=== PATIENT | female | born 1935 | race Caucasian/White ===

== ENCOUNTER 2019-06-22 10:15 | Outpatient (CLI) | payer OTHER, SELFPAY ==
--- NOTE | ~2019-06-22 | MM_ITS ---
EXAMINATION: MM screening cheryl BI w von HISTORY: Screening mammogram TECHNIQUE: Craniocaudal and mediolateral oblique 3-D tomosynthesis images were obtained and synthetic 2-D images were generated. CAD analysis was submitted and interpreted. COMPARISON: Comparison to multiple prior studies sequentially, with oldest reviewed study dated 07/10. BREAST PARENCHYMAL COMPOSITION: There are scattered areas of fibroglandular density. FINDINGS: There is no evidence of suspicious mass, calcification, or architectural distortion to sugg est malignancy in either breast. There has been no suspicious interval change. IMPRESSION: 1. No mammographic evidence of malignancy. 2. Recommend routine screening mammography in one year. BI-RADS Category 1: Negative Reviewed, dictated and finalized at location A. NICAL EDITOR
== END 2019-06-22 10:16 | disposition home or self-care (01) ==
LOC: ANHIMG 10:18
PROVIDERS: PCP Internal Medicine; Visit Provider Internal Medicine
DX: Z12.31 Encounter for screening mammogram for malignant neoplasm of breast (principal)
CPT/HCPCS: 77063; 77067

== ENCOUNTER 2019-06-24 12:45 | Outpatient (CLI) | payer OTHER, SELFPAY ==
--- NOTE | ~2019-06-24 | MR_ITS ---
EXAMINATION: MR hip RT wo con DATE: 06/24/2019 13:44 INDICATION: Right hip pain when standing and sitting TECHNIQUE: Magnetic resonance imaging (MRI) of the right hip was performed without intravenous contr ast. Sequences included full-field axial PD-weighted FS FSE and T1-weighted FSE, coronal of the pelvi s with PD-weighted FS FSE, small field of view of the right hip with axial PD-weighted FS FSE, sagit anibal PD-weighted FS FSE and coronal PD weighted FS FSE. Additional radial T1-weighted FGR oriented ort hogonal to the acetabular rim were obtained for evaluation of the labrum. COMPARISON: Right hip radiographs dated 06/24/2019 FINDINGS: Bones/labrum/cartilage: Alignment is normal. No fracture, avascular necrosis or pathologic marrow replacing process. Moderat e osteoarthritis at the right hip with moderate sized hypertrophic osteophytes at the margins of the femoral head. There is nonuniform joint space narrowing with partial thickness cartilage loss which i nvolves greater than 50% the cartilage thickness with mild underlying subarticular cystic change at t he small region of the anterosuperior right acetabulum. There are additional small marginal osteophyt es along the acetabulum with diffuse degenerative tearing of the anterosuperior to posterior superior right acetabular labrum which appears thickened with increased signal and irregular margins. Small p sean labral cyst extends cephalad from the anterosuperior labrum insinuating along the fibers of the r eflected head of the right rectus femoris tendon. There is relatively symmetric appearance of osteoar thritis related hypertrophic changes at the left femoral head and acetabulum with or suggestion of si milar labral degeneration although this along with the cartilage is not diagnostically evaluated at t he left hip on the larger field of view images. Severe lower lumbar spondylosis. Mild bilateral sacro iliac osteoarthritis. Fluid: Symmetric physiologic amount of fluid within both hip joints. Soft tissues: Normal and symmetric muscle bulk and signal in the pelvis and visualized proximal thighs. The iliopso as, gluteal and proximal hamstring tendons are normal. The uterus is not identified and has likely be en surgically resected. There are few diverticula along the sigmoid colon without adjacent inflammato ry change to suggest diverticulitis. Limited evaluation of visceral organs of the pelvis is otherwise unremarkable. No pathologically enlarged pelvic/inguinal lymphadenopathy. IMPRESSION: 1. 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 Similar findings sugges jennifer but not diagnostically evaluated at the left hip on the larger field of view images. Line 2. Severe lower lumbar spondylosis. Reviewed, dictated and finalized at location A. D NURSE IMPRESSION: 1. 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 S imilar findings suggested but not diagnostically evaluated at the left hip on t he larger field of view images. Line 2. Severe lower lumbar spondylosis.
--- NOTE | ~2019-06-24 | XR_ITS ---
EXAMINATION: XR hip RT min 2V DATE: 06/24/2019 14:12 INDICATION: Right hip pain. TECHNIQUE: 2 views of right hip were obtained. COMPARISON: Right hip radiographs 11/01/2011 FINDINGS: Bone alignment is normal. No fracture. There is moderate right hip osteoarthritis. IMPRESSION: 1. Moderate right hip osteoarthritis. Reviewed, dictated and finalized at location A. A RELATIONS MANAGER
== END 2019-06-24 12:46 | disposition home or self-care (01) ==
PROVIDERS: PCP Internal Medicine; Visit Provider Internal Medicine
DX: M25.551 Pain in right hip (principal); M16.11 Unilateral primary osteoarthritis, right hip; M47.816 Spondylosis without myelopathy or radiculopathy, lumbar region
CPT/HCPCS: 73502; 73721

== ENCOUNTER 2019-09-21 00:01 | Outpatient (CLI) | payer OTHER, SELFPAY ==
[2019-09-21 16:10] LABS: SARS-CoV-2 RNA PCR Negative
== END 2019-09-21 00:02 | disposition home or self-care (01) ==
LOC: ANHCOVIDDT 00:01
PROVIDERS: PCP Internal Medicine; Visit Provider Internal Medicine Gastroenterology
DX: Z01.818 Encounter for other preprocedural examination (principal); Z11.59 Encounter for screening for other viral diseases; Z86.010 Personal history of colon polyps
CPT/HCPCS: 87635; C9803; U0003

== ENCOUNTER 2019-09-23 01:05 | Day surgery (SDC) | payer OTHER, SELFPAY ==
[2019-09-23 06:30] VITALS: BP 142/64; PULSE 74; RESP 20; TEMP 36.6; O2SAT 97; BMI 23.5
[2019-09-23] MEDS: LACTATED RINGERS 1,000 ML 150 ML IV CONT (06:37)
--- NOTE | 2019-09-23 07:05 | P.HP_ITS ---
History of Present Illness History of Present Illness Consent: Risks, benefits, and alternatives have been discussed and questions answered. Patient agrees to proceed with procedure. Chief complaint: hx of polyps Narrative: Diana Quinones is a 84 year old W female Referred for screening colonoscopy secondary to history of a cecal polyp removed in piecemeal fashion a year ago and this was a tubulovillous adenoma. Patient is a difficult colonoscopy with fixation of the sigmoid times and not been able to advance through this area. The patient is aware of this. There been no interval changes in her health since a year ago. Patient has a history of chronic int ermittent diarrhea and this has improved since the patient stopped eating fried foods. PMFSH Family History Family History Sibling Family history of alcoholism Patient's brother is Patient's brother is in good health Family history of malignant neoplasm Patient's sister is Mother Family history of malignant neoplasm Patient's mother is Father Family history of malignant neoplasm Patient's father is Other Family history of gallbladder disease Social History Social History Smoking status: Never smoker Alcohol intake: never Meds Home Medications and Allergies Home Medications Medication Instructions Recorded Confirmed Type oxybutynin chloride 10 mg 10 mg PO DAILY #90 tablet 06/11/19 09/23/19 Rx tablet,extended release 24 hr alendronate 70 mg tablet 70 mg PO WEEKLY #12 tablet 06/26/19 09/23/19 Rx cholecalciferol (vitamin D3) 50 2,000 unit PO DAILY #90 cap 06/26/19 09/23/19 Rx mcg (2,000 unit) capsule levothyroxine 75 mcg tablet 75 mcg PO DAILY #90 tablet 06/26/19 09/23/19 Rx simvastatin 40 mg PO HS 09/15/19 09/23/19 History Allergies Allergy/AdvReac Type Severity Reaction Status Date / Time meperidine Allergy Intermediate Nausea and Verified 09/23/19 06:25 Vomiting Vital Signs Vital Signs - 24 hr 09/23/19 06:30 Temperature 36.6 C Pulse Rate 74 Respiratory Rate 20 Blood Pressure 142/64 H Pulse Oximetry 97 Exam Const: Orientation/consciousness: patient oriented x3 Resp: Auscultation: clear to auscultation bilaterally Cardio: Rate: regular rate Rhythm: regular rhythm Heart sounds: no murmurs GI: GI Palp: Yes Soft to palpation, No Tenderness to palpation present (GI), Yes No hepatosplenomegaly present and No Palpable mass present Auscultation: normal bowel sounds Neuro: General: patient oriented x3 and no focal motor deficits Extrem: General: no pedal edema Assessment and Plan Additional Plan screening colonoscopy for follow-up of a tubulovillous adenoma that was removed in piecemeal fashion a year ago.
--- NOTE | 2019-09-23 07:07 | WPDANESEPPF ---
Anes - Initial Pre Proc Eval Procedure: Operation Date: 09/23/19 07:30 Proposed Procedures p Screening Colonoscopy - Jameson To MD Date/Time: 09/23/19 07:07 Surgeon: Jameson To MD Pre Op Diagnosis: hx of polyps Patient Data Age: 84 Gender: F Height: 5 ft 3 in Weight: 60.2 kg Last Vital Signs Temp 97.9 F 09/23/19 06:30 Pulse 74 09/23/19 06:30 Resp 20 09/23/19 06:30 BP 142/64 H 09/23/19 06:30 Pulse Ox 97 09/23/19 06:30 Allergies Allergy/AdvReac Type Severity Reaction Status Date / Time meperidine Allergy Intermediate Nausea and Verified 09/23/19 06:25 Vomiting Home Medications Medication Instructions Recorded Confirmed Type oxybutynin chloride 10 mg 10 mg PO DAILY #90 tablet 06/11/19 09/23/19 Rx tablet,extended release 24 hr alendronate 70 mg tablet 70 mg PO WEEKLY #12 tablet 06/26/19 09/23/19 Rx cholecalciferol (vitamin D3) 50 2,000 unit PO DAILY #90 cap 06/26/19 09/23/19 Rx mcg (2,000 unit) capsule levothyroxine 75 mcg tablet 75 mcg PO DAILY #90 tablet 06/26/19 09/23/19 Rx simvastatin 40 mg PO HS 09/15/19 09/23/19 History Patient hx anesthesia problems: none Family hx anesthesia problems: none PMFSH Past Medical History Medical History (Updated 09/23/19 @ 07:07 by Mc Wall MD) Acquired hypothyroidism Mixed hyperlipidemia Family History Family History Sibling Family history of alcoholism Patient's brother is Patient's brother is in good health Family history of malignant neoplasm Patient's sister is Mother Family history of malignant neoplasm Patient's mother is Father Family history of malignant neoplasm Patient's father is Other Family history of gallbladder disease Social History Social History Smoking status: Never smoker Alcohol intake: never Anes - Eval Final PreProcedure Day of Procedure 09/23/19 07:07 Patient weight: normal Heart: regular rate and rhythm Lungs: clear to auscultation Airway: Mallampati scale class II Neurological: alert and oriented Last oral intake: >/= 8 hours ASA classification: II Emergent: no Anesthetic plan: proceed Anesthesia type and monitoring: general GIVS and standard monitoring Informed Consent: The patient's anesthetic plan and its attendant risks and benefits were discussed with the patient/family/POA. Questions were solicited and answers provided to the satisfaction of the patient/family/POA.
[2019-09-23 07:50] VITALS: BP 119/68; PULSE 69; RESP 16; O2SAT 98
[2019-09-23 08:00] VITALS: BP 136/73; PULSE 67; RESP 16; O2SAT 99
[2019-09-23 08:10] VITALS: BP 145/61; PULSE 65; RESP 19; O2SAT 98
== END 2019-09-23 08:22 | disposition home or self-care (01) ==
PROVIDERS: PCP Internal Medicine; Visit Provider Internal Medicine Gastroenterology
PROC: 0DJD8ZZ Inspection of Lower Intestinal Tract, Via Natural or Artificial Opening Endoscopic (ICD-10-PCS; CPT 45378; principal; 2019-09-23 07:30)
DX: Z12.11 Encounter for screening for malignant neoplasm of colon (principal); K64.8 Other hemorrhoids; K64.4 Residual hemorrhoidal skin tags; K57.30 Diverticulosis of large intestine without perforation or abscess without bleeding; Z86.010 Personal history of colon polyps; E03.9 Hypothyroidism, unspecified; E78.2 Mixed hyperlipidemia
CPT/HCPCS: G0105; J2704; J7120

== ENCOUNTER 2019-12-07 07:28 | Outpatient (CLI) | payer OTHER, SELFPAY ==
[2019-12-07 08:21] LABS: Alanine Aminotransferase 18 U/L (4-35); Albumin Level 4.1 g/dL (3.5-5.1); Alkaline Phosphatase 69 U/L (38-126); Anion Gap 5 mmol/L (8-16); Aspartate Amino Transferase 25 U/L (14-36); Bilirubin,Total 1.1 mg/dL (0.2-1.3); Blood Urea Nitrogen 12 mg/dL (7-17); Calcium 8.6 mg/dL (8.4-10.2); Carbon Dioxide 30 mmol/L (22-30); Chloride 103 mmol/L (98-107); Cholesterol 165 mg/dL (0-200); Estimated Glomerular Filt Rate > 60; Glucose 98 mg/dL (65-105); HDL Direct 70 mg/dL; Potassium 4.2 mmol/L (3.4-5.0); Sodium 138 mmol/L (137-145); Triglycerides 117 mg/dL (<150)
[2019-12-07 08:32] LABS: LDL Cholesterol Direct 67 mg/dL
[2019-12-07 08:50] LABS: Thyroid Stimulating Hormone 0.837 uIU/mL (0.465-4.680)
[2019-12-07 09:14] LABS: Vitamin D 25 Hydroxy 39.2 ng/mL
== END 2019-12-07 07:29 | disposition home or self-care (01) ==
LOC: ANHLAB 07:29
PROVIDERS: PCP Internal Medicine; Visit Provider Internal Medicine
DX: E78.2 Mixed hyperlipidemia (principal); Z51.81 Encounter for therapeutic drug level monitoring; E78.5 Hyperlipidemia, unspecified; E03.9 Hypothyroidism, unspecified; E59 Dietary selenium deficiency
CPT/HCPCS: 36415; 80053; 80061; 82306; 84443

== ENCOUNTER 2019-12-17 14:25 | Outpatient (CLI) | payer OTHER, SELFPAY ==
--- NOTE | ~2019-12-17 | XR_ITS ---
EXAMINATION: XR chest 2V DATE: 12/17/2019 14:42 INDICATION: Dyspnea, unspecified. TECHNIQUE: Frontal and lateral views of the chest were obtained. COMPARISON: CT abdomen and pelvis 03/08/2011, thoracic spine radiographs 07/22/2013 FINDINGS: There is mild scarring at the lung apices. There is mild scarring in lingula. No pleural ef fusion or pneumothorax. The heart size is normal. Surgical clips in the right upper quadrant are like ly from cholecystectomy. There is a chronic compression fracture in mid thoracic spine. IMPRESSION: 1. Mild scarring at the lung apices and in the lingula. Reviewed, dictated and finalized at location A.
== END 2019-12-17 14:26 | disposition home or self-care (01) ==
LOC: ANHIMG 14:27
PROVIDERS: PCP Internal Medicine; Visit Provider Internal Medicine
DX: R06.00 Dyspnea, unspecified (principal); R91.8 Other nonspecific abnormal finding of lung field
CPT/HCPCS: 71046

== ENCOUNTER 2020-01-01 08:09 | Outpatient (CLI) | payer OTHER, SELFPAY ==
--- NOTE | 2020-01-01 08:19 | EST_ITS ---
Patient Info Name: Diana Quinones Age: 84 years : 1935 Gender: Female Ht: 63 in Wt: 132 lbs BSA: 1.64 m2 Exam Date: 01/01/2020 9:09 AM Exam Location: [facility] Patient Status: Outpatient Admit Date: 01/01/2020 Staff Ordering Physician: Trever Farias DO Lockstitch Shoulder Joiner: Fuentes Mcallister RDCS, RT Attending Provider: BRYAN BROCK DO Referring Physician: Dinora LEAHY; Exercise Technologist: Shena Hemphill RDCS Exam Type: CA stress echo Study Info Indications R06.00 - Dyspnea, unspecified Treadmill exercise stress echocardiogram is performed. Summary 1. 1. Negative Yonas exercise stress test for ischemic ST changes by ECG criteria. 2. 2. Reduced functional capacity, achieving 4 METs of workload. 3. 3. Baseline hypertension. 4. 4. Rapid HR response to exercise achieving 85% MPHR in first 2 minute of exercise. 5. 5. Appropriate HR recovery at 1 minute post exercise. 6. 6. Negative stress echocardiogram for ischemia by wall motion analysis. Stress Echo Findings Left Ventricle Appropriate increase in LV endocardial thickening with systole. Appropriate augmentation of contractility with systole. No wall motion abnormality. Left Ventricle Normal LV systolic function, no wall motion abnormality. Protocol: Yonas Stress ECG Details Stage: REST Duration (min): 7 min : 17 sec Speed (mph): 0.0 Grade (%): 0 HR (bpm): 67 SBP (mmHg): 142 DBP (mmHg): 80 METS: --- Stage: REST Duration (min): 21 min : 2 sec Speed (mph): 0.0 Grade (%): 0 HR (bpm): 91 SBP (mmHg): 142 DBP (mmHg): 80 METS: --- Stage: STAGE 1 Duration (min): 1 min : 0 sec Speed (mph): 1.7 Grade (%): 10 HR (bpm): 109 SBP (mmHg): 142 DBP (mmHg): 80 METS: --- Stage: STAGE 1 Duration (min): 2 min : 0 sec Speed (mph): 1.7 Grade (%): 10 HR (bpm): 138 SBP (mmHg): 142 DBP (mmHg): 80 METS: --- Stage: STAGE 1 Duration (min): 3 min : 0 sec Speed (mph): 1.7 Grade (%): 10 HR (bpm): 142 SBP (mmHg): 191 DBP (mmHg): 85 METS: --- Stage: STAGE 2 Duration (min): 0 min : 1 sec Speed (mph): 0.0 Grade (%): 0 HR (bpm): 145 SBP (mmHg): 191 DBP (mmHg): 85 METS: --- Stage: RECOVERY Duration (min): 0 min : 58 sec Speed (mph): 0.0 Grade (%): 0 HR (bpm): 111 SBP (mmHg): 205 DBP (mmHg): 81 METS: --- Stage: RECOVERY Duration (min): 1 min : 58 sec Speed (mph): 0.0 Grade (%): 0 HR (bpm): 92 SBP (mmHg): 205 DBP (mmHg): 81 METS: --- Stage: RECOVERY Duration (min): 2 min : 58 sec Speed (mph): 0.0 Grade (%): 0 HR (bpm): 81 SBP (mmHg): 201 DBP (mmHg): 66 METS: --- Stage: RECOVERY Duration (min): 3 min : 58 sec Speed (mph): 0.0 Grade (%): 0 HR (bpm): 74 SBP (mmHg): 201 DBP (mmHg): 66 METS: --- Stage: RECOVERY Duration (min): 4 min : 58 sec Speed (mph): 0.0 Grade (%): 0 HR (bpm): 73
== END 2020-01-01 08:10 | disposition home or self-care (01) ==
LOC: ANHCARD 08:12
PROVIDERS: PCP Internal Medicine; Visit Provider Internal Medicine
DX: R06.00 Dyspnea, unspecified (principal)
CPT/HCPCS: 93351

== ENCOUNTER 2020-01-25 08:17 | Outpatient (CLI) | payer OTHER, SELFPAY ==
--- NOTE | ~2020-01-25 | DEXA_ITS ---
Bone Density Report Name: Diana Quinones Age: 84 Sex: Female Ethnicity: White Date of : 1935 Indication: osteopenia; monitoring treatment; hysterectomy; Referring Provider: YONY BARR Study: Bone densitometry was performed. Exam Date: January 25, 2020 Accession number: [id number] Bone Density: Region BMD T-score Z-score Classification AP Spine (L1-L4) 0.952 -0.9 2.0 Normal Femoral Neck (Left) 0.580 -2.4 0.1 Osteopenia Total Hip (Left) 0.643 -2.5 -0.1 Osteoporosis Total Hip Bilateral Avg 0.658 -2.4 0.0 Osteopenia Femoral Neck (Right) 0.556 -2.6 -0.1 Osteoporosis Total Hip (Right) 0.672 -2.2 0.1 Osteopenia World Health Organization criteria for BMD impression classify patients as: Normal (T-score at or above -1.0), Osteopenia (T-score between -1.0 and -2.5), or Osteoporosis (T-score at or below -2.5). 10-year Fracture Risk: FRAX not reported because: Some T-score for Spine Total or Hip Total or Femoral Neck at or below -2.5 Treated for osteoporosis Previous Exams: Region Exam Age BMD T-score BMD Change BMD Change Date g/cm2 vs Baseline vs Previous AP Spine(L1-L4) 01/25/2020 84 0.952 -0.9 0.007(0.7%)# 0.008(0.9%) 01/21/2018 82 0.944 -0.9 -0.002(-0.2%)# 0.034(3.8%)* 06/10/2015 79 0.910 -1.2 -0.036(-3.8%)# -0.036(-3.8%)# 12/09/2008 73 0.945 -0.9 Total Hip(Left) 01/25/2020 84 0.643 -2.5 -0.068(-9.5%)# -0.012(-1.9%) 01/21/2018 82 0.655 -2.4 -0.055(-7.8%)# 0.017(2.7%) 06/10/2015 79 0.638 -2.5 -0.072(-10.2%) -0.072(-10.2%) 12/09/2008 73 0.710 -1.9 Total Hip(Right) 01/25/2020 84 0.672 -2.2 -0.036(-5.1%)# -0.005(-0.8%) 01/21/2018 82 0.677 -2.2 -0.031(-4.3%)# 0.028(4.3%)* 06/10/2015 79 0.649 -2.4 -0.058(-8.3%)# -0.058(-8.3%)# 12/09/2008 73 0.708 -1.9 *Denotes significance at 95% confidence level, LSC for AP Spine = 0.022 g/cm2, LSC for Total Hip = 0.027 g/cm2 Clinical Information Provided by Patient: Is being treated for osteoporosis Has used the following medications: Boniva (i.e. ibandronate), Fosamax (i.e. alendronate), Vitamin D, Calcium Has the following medical conditions: Hysterectomy Patient maximum height was 63 Menopause Age: 44 No regular weight bearing exercise Drinks caffeinated beverages Onset of menses at age 14 Number of children 4 Impression: The patient has osteoporosis, based on the Right Femoral Neck T-score. No significant bone loss was observed.
== END 2020-01-25 08:18 | disposition home or self-care (01) ==
LOC: ANHIMG 08:20
PROVIDERS: PCP Internal Medicine; Visit Provider Internal Medicine
DX: M81.0 Age-related osteoporosis without current pathological fracture (principal); M85.851 Other specified disorders of bone density and structure, right thigh; M85.852 Other specified disorders of bone density and structure, left thigh
CPT/HCPCS: 77080

== ENCOUNTER 2020-07-15 08:44 | Outpatient (CLI) | payer OTHER, SELFPAY ==
--- NOTE | ~2020-07-15 | MM_ITS ---
EXAMINATION: MM screening cheryl BI w von HISTORY: Screening TECHNIQUE: Craniocaudal and mediolateral oblique 3-D tomosynthesis images were obtained and synthetic 2-D images were generated. CAD analysis was submitted and interpreted. COMPARISON: Comparison to multiple prior studies sequentially, with oldest reviewed study dated 01/09. BREAST PARENCHYMAL COMPOSITION: There are scattered areas of fibroglandular density. FINDINGS: There is no evidence of suspicious mass, calcification, or architectural distortion to sugg est malignancy in either breast. There has been no suspicious interval change. IMPRESSION: 1. No mammographic evidence of malignancy. 2. Recommend routine screening mammography in one year. BI-RADS Category 1: Negative Reviewed, dictated and finalized at location A.
== END 2020-07-15 08:45 | disposition home or self-care (01) ==
LOC: ANHIMG 08:46
PROVIDERS: PCP Internal Medicine; Visit Provider Internal Medicine
DX: Z12.31 Encounter for screening mammogram for malignant neoplasm of breast (principal)
CPT/HCPCS: 77063; 77067

== ENCOUNTER 2020-11-02 06:52 | Outpatient (CLI) | payer OTHER, SELFPAY ==
--- NOTE | ~2020-11-02 | MR_ITS ---
EXAMINATION: MR hip RT wo con DATE: 11/02/2020 08:18 INDICATION: Right hip pain. TECHNIQUE: Magnetic resonance imaging (MRI) of the right hip was performed without intravenous contra st. Sequences included axial and coronal PD-weighted FS FSE and axial T1-weighted FSE of the pelvis. Sequences of the hip included 2D FIESTA, T1-weighted fast GRE, and axial, coronal, and sagittal PD-we ighted FS FSE. COMPARISON: Right hip MRI 06/24/2019, radiographs 06/24/2019 FINDINGS: Bones/cartilage: Bone alignment is normal. No fracture. There is severe lumbar spondylosis. There is moderate osteoart hritis of the hips. Small [id number] images of the right hip demonstrate multiple areas of deep pa rtial thickness cartilage loss. Osteophytes are noted. Labrum: There are tears of the acetabular gareth bilaterally. Fluid: There is no hip joint effusion. There is mild bilateral trochanteric bursitis. Soft tissues: The iliopsoas tendons are normal. The gluteus minimus and gluteus medius tendons are normal. IMPRESSION: 1. Stable moderate osteoarthritis of the hips. Reviewed, dictated and finalized at location A.
== END 2020-11-02 06:53 | disposition home or self-care (01) ==
PROVIDERS: PCP Internal Medicine; Visit Provider Internal Medicine
DX: M16.11 Unilateral primary osteoarthritis, right hip (principal); M47.816 Spondylosis without myelopathy or radiculopathy, lumbar region
CPT/HCPCS: 73721

== ENCOUNTER 2021-07-06 09:31 | Outpatient (CLI) | payer OTHER, SELFPAY ==
--- NOTE | ~2021-07-06 | XR_ITS ---
EXAMINATION: XR chest 2V DATE: 07/06/2021 09:46 INDICATION: Chest tightness. TECHNIQUE: Frontal and lateral views of the chest were obtained. COMPARISON: Chest 2 views 12/17/2019 FINDINGS: There is mild scarring at the lung apices and in lingula. No pleural effusion or pneumothor ax. The heart size is normal. There is a chronic compression fracture in mid thoracic spine. IMPRESSION: 1. Stable mild scarring at the lung apices and in lingula. Reviewed, dictated and finalized at location A. [employer]
== END 2021-07-06 09:32 | disposition home or self-care (01) ==
PROVIDERS: PCP Internal Medicine; Visit Provider Internal Medicine
DX: R07.9 Chest pain, unspecified (principal); R91.8 Other nonspecific abnormal finding of lung field
CPT/HCPCS: 71046

== ENCOUNTER 2021-08-23 10:34 | Outpatient (CLI) | payer OTHER, SELFPAY ==
--- NOTE | ~2021-08-23 | MM_ITS ---
EXAMINATION: MM screening cheryl BI w von HISTORY: Screening TECHNIQUE: Craniocaudal and mediolateral oblique 3-D tomosynthesis images were obtained and synthetic 2-D images were generated. CAD analysis was submitted and interpreted. COMPARISON: Comparison to multiple prior studies sequentially, with oldest reviewed study dated 01/09. BREAST PARENCHYMAL COMPOSITION: There are scattered areas of fibroglandular density. FINDINGS: There is no evidence of suspicious mass, calcification, or architectural distortion to sugg est malignancy in either breast. There has been no suspicious interval change. IMPRESSION: 1. No mammographic evidence of malignancy. 2. Recommend routine screening mammography in one year. BI-RADS Category 1: Negative Reviewed, dictated and finalized at location A.
== END 2021-08-23 10:35 | disposition home or self-care (01) ==
PROVIDERS: PCP Internal Medicine; Visit Provider Internal Medicine
DX: Z12.31 Encounter for screening mammogram for malignant neoplasm of breast (principal)
CPT/HCPCS: 77063; 77067

== ENCOUNTER 2021-09-09 09:48 | Emergency (ER) | payer OTHER, SELFPAY ==
--- NOTE | ~2021-09-09 | XR_ITS ---
XR shoulder RT min 2V DATE: 09/09/2021 10:08 INDICATION: Fall. Deformity and pain of right shoulder TECHNIQUE: 3 views COMPARISON: None FINDINGS: There is, fracture of the proximal right humerus including fracture of the surgical neck wi th complete medial displacement in addition to fracture of the humeral head and greater tuberosity. Glenohumeral and acromioclavicular alignment are preserved. Osteopenia. IMPRESSION: There are fractures of proximal right humerus including humeral head, greater tuberosity and surgical neck Reviewed, dictated and finalized at location A. IMPRESSION: There are fractures of proximal right humerus including humeral hea d, greater tuberosity and surgical neck
[2021-09-09 09:51] VITALS: BP 149/63; PULSE 71; RESP 16; TEMP 36.4; O2SAT 96
--- NOTE | 2021-09-09 10:25 | PC.NURSE ---
pt placed in sling for comfort at this time
[2021-09-09] MEDS: MORPHINE SULFATE (*CRX) 4 MG/ML INJ 2 MG IV PUSH (10:49)
[2021-09-09] MEDS: ONDANSETRON INJ 4 MG/2 ML VIAL IV PUSH (10:49)
--- NOTE | 2021-09-09 10:50 | ED.UPPEXIN ---
HPI - Extremity Injury (Upper) General Chief Complaint: Extremity Injury, Upper Stated Complaint: right shoulder inj, fall Time Seen by Provider: 09/09/21 10:39 History of Present Illness HPI narrative: pt here with right shoulder injury fell outside in yard no loc/neck or had/back injury no neuro chagnes tripeed and riht knee abrasion but walked on it after no knee pain needs tdap all pain right shoulder and no other c/o can take morphine Related Data Allergies Allergy/AdvReac Type Severity Reaction Status Date / Time meperidine Allergy Intermediate Nausea and Verified 09/09/21 10:37 Vomiting Review of Systems Review of Systems: CONSTITUTIONAL: Denies fever, chills, or sweats. EYES: Denies visual changes, redness, or discharge. ENT: Denies rhinorrhea, congestion, sore throat, or otalgia. CARDIOVASCULAR: Denies chest pain, palpitations, or edema. RESPIRATORY: Denies cough or dyspnea. GASTROINTESTINAL: Denies abdominal pain, nausea, vomiting, or diarrhea. GENITOURINARY: Denies dysuria or hematuria. SKIN: Denies rash or itching. MUSCULOSKELETAL: Denies back pain, joint pain, or myalgia. has injury to right shoulder and right knee abrasion NEUROLOGIC: Denies headache, numbness, or weakness. PSYCHIATRIC: Denies anxiety or depression. [facility] Past Medical History Medical History Acquired hypothyroidism Mixed hyperlipidemia Family History Family History Sibling Family history of alcoholism Patient's brother is Patient's brother is in good health Family history of malignant neoplasm Patient's sister is Mother Family history of malignant neoplasm Patient's mother is Father Family history of malignant neoplasm Patient's father is Other Family history of gallbladder disease Social History Social History (Updated 07/06/21 @ 08:38 by Breanna Witt) Smoking status: Never smoker Second hand tobacco smoke exposure: No Alcohol intake: never Substance use: never Substance use type: does not use Exam Narrative: APPEARANCE: Well appearing, no pain in distress, well-nourished. Head normocephalic atraumtaic. EYES: PERRLA/EOMI, conjunctivae very clear. NOSE: Normal no drainage EARS:TMS clear Mica Fitzgerald, with good light reflex. THROAT: Pharynx clear, no exudate. NECK: Supple. No adenopathy, no masses. RESPIRATORY: Airway patent, repsirations nonlabored. Clear to auscultation bilaterally, no rales, rhonchi, wheezing. CARDIOVASCULAR: Regular rate and rhythm without murmurs rubs or gallops. ABDOMINAL: Soft, nontender, nondistended, no hepatosplenomegally MUSCULOSKELETAl: right shoulder tned and decreased rom but distal neuro/pulses intact Strenght/ROM intact, No edema, No calf tenderness. NEURO: Alert. Cranial nerves II through XII intact. Good gait. Good coordination SKIN:: Warm, dry. Normal Color right knee abrasion PSYCHIATRIC: Normal affect/mood, normal interaction with parents. Course Course Emergency Course: talked with our ortho dr Treviño and sent films to him for review concerned needs surgery and speialist ? replace joint or not which he adolfo't do can do outpt call [place] so updating pt on plan at 1054 Consultations Consultation #1: talked with Dr Zohaib Silverman at [facility] at 1243 and fine with outpt f/u took pt's phone and will call saturday pt aware good wiht plan Vital Signs Vital signs: Vital Signs Temperature 36.4 C L 09/09/21 09:51 Pulse Rate 71 09/09/21 09:51 Respiratory Rate 16 09/09/21 09:51 Blood Pressure 149/63 H 09/09/21 09:51 Pulse Oximetry 96 09/09/21 09:51 Temperature 36.4 C L 09/09/21 09:51 Pulse Rate 71 09/09/21 09:51 Respiratory Rate 16 09/09/21 09:51 Blood Pressure 149/63 H 09/09/21 09:51 Pulse Oximetry 96 09/09/21 09:51 MDM - Extremity Injury (Upper) MDM Francesco
[2021-09-09] MEDS: MORPHINE SULFATE (*CRX) 4 MG/ML INJ IV PUSH (12:56)
[2021-09-09 12:59] VITALS: BP 149/76; PULSE 76; RESP 17; O2SAT 100
== END 2021-09-09 13:19 | disposition home or self-care (01) ==
PROVIDERS: Emergency Provider Emergency Medicine; PCP Internal Medicine
DX: S42.211A Unspecified displaced fracture of surgical neck of right humerus, initial encounter for closed fracture (principal); S42.251A Displaced fracture of greater tuberosity of right humerus, initial encounter for closed fracture; S42.291A Other displaced fracture of upper end of right humerus, initial encounter for closed fracture; E03.9 Hypothyroidism, unspecified; E78.2 Mixed hyperlipidemia; W01.0XXA Fall on same level from slipping, tripping and stumbling without subsequent striking against object, initial encounter
CPT/HCPCS: 73030; 96374; 96375; 96376; 99284; A4565; J2270; J2405

== ENCOUNTER 2021-12-01 11:12 | Outpatient (CLI) | payer OTHER, SELFPAY ==
--- NOTE | ~2021-12-01 | XR_ITS ---
EXAMINATION: XR lumbar spine 2-3V DATE: 12/01/2021 11:33 INDICATION: Lumbar radiculopathy TECHNIQUE: Anteroposterior and lateral views of the lumbar spine, and cone-down lateral view of the l umbosacral junction were obtained. COMPARISON: 01/30/2019 FINDINGS: Alignment is normal. Vertebral body heights are normal. Severe disc height loss with degenerative end plate changes at L4-L5 and L5-S1. Moderate disc height loss at L3-L4. Mild bilateral sacroiliac osteo arthritis. Cholecystectomy clips in right upper quadrant. Lung bases are clear with no pleural effusi on. IMPRESSION: 1. Severe lower lumbar spondylosis. Reviewed, dictated and finalized at location A.
== END 2021-12-01 11:13 | disposition home or self-care (01) ==
PROVIDERS: PCP Internal Medicine; Visit Provider Internal Medicine
DX: M54.16 Radiculopathy, lumbar region (principal); M43.06 Spondylolysis, lumbar region
CPT/HCPCS: 72100

== ENCOUNTER 2021-12-19 10:38 | Outpatient (CLI) | payer OTHER, SELFPAY ==
--- NOTE | ~2021-12-19 | MR_ITS ---
EXAMINATION: MR lumbar spine wo con DATE: 12/19/2021 11:17 INDICATION: Radiculopathy, lumbar region. TECHNIQUE: Magnetic resonance imaging (MRI) of the lumbar spine was performed without intravenous con trast. Sequences included sagittal T2-weighted FSE, sagittal T2-weighted FS FSE, sagittal T1-weighted FSE, and axial T2-weighted FSE. COMPARISON: Lumbar spine radiographs 12/01/2021 FINDINGS: Bone alignment is normal. Vertebral body heights are normal. There is mildly decreased disc height at L2-L3, moderately decreased disc height at L2-L3 and L4-L5, and severely decreased disc he ight at L5-S1 with endplate remodeling. The distal spinal cord signal intensity is normal. The conus medullaris is at L2. The following disc levels are specifically discussed: L1-L2: The disc is bulging. There is mild bilateral facet joint osteoarthritis. There is mild right n eural foraminal stenosis. There is mild central canal stenosis. L2-L3: The disc is bulging and has an annular fissure. There is severe bilateral facet joint osteoart hritis. There is a synovial cyst from right facet joint in right lateral recess. There is moderate ri ght and mild left neural foraminal stenosis. There is moderate central canal stenosis. L3-L4: The disc is bulging. There is mild bilateral facet joint osteoarthritis. There is mild bilater al neural foraminal stenosis. There is mild central canal stenosis. L4-L5: The disc is bulging. There is mild bilateral facet joint osteoarthritis. There is mild left ne ural foraminal stenosis. There is no central canal stenosis. L5-S1: The disc is bulging. There is mild bilateral facet joint osteoarthritis. There is mild bilater al neural foraminal stenosis. There is mild central canal stenosis. IMPRESSION: 1. Severe lumbar spondylosis. Reviewed, dictated and finalized at location A.
== END 2021-12-19 10:39 | disposition home or self-care (01) ==
PROVIDERS: PCP Internal Medicine; Visit Provider Internal Medicine
DX: M54.16 Radiculopathy, lumbar region (principal); M43.06 Spondylolysis, lumbar region
CPT/HCPCS: 72148

== ENCOUNTER 2022-01-02 09:13 | Outpatient (CLI) | payer OTHER, SELFPAY ==
--- NOTE | ~2022-01-02 | XR_ITS ---
EXAMINATION: XR thoracic spine 3V DATE: 01/02/2022 09:38 INDICATION: Thoracic back pain TECHNIQUE: AP, lateral and lateral swimmer's views of the thoracic spine were obtained. COMPARISON: 07/22/2013 FINDINGS: No acute fracture is identified. There is a chronic and unchanged mild compression deformit y of T7. There is moderate loss of intervertebral disc space height in the mid and upper thoracic spi ne. Vertebral body alignment is normal. Small degenerative osteophytes project from the anterior endp lates of multiple vertebral bodies. Internal stabilization hardware is noted in the proximal right hu merus. IMPRESSION: 1. 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 Reviewed, dictated and finalized at location B. IMPRESSION: 1. Chronic mild compression deformity of T7 and mild to moderate thoracic spond ylosis without acute findings or significant interval change.
== END 2022-01-02 09:14 | disposition home or self-care (01) ==
PROVIDERS: PCP Internal Medicine; Visit Provider Internal Medicine
DX: M54.9 Dorsalgia, unspecified (principal); M47.814 Spondylosis without myelopathy or radiculopathy, thoracic region; M43.8X4 Other specified deforming dorsopathies, thoracic region
CPT/HCPCS: 72072

== ENCOUNTER 2022-11-09 07:54 | Outpatient (CLI) | payer OTHER, SELFPAY ==
--- NOTE | ~2022-11-09 | MM_ITS ---
EXAMINATION: MM screening [facility] w von HISTORY: Screening mammogram TECHNIQUE: Craniocaudal and mediolateral oblique 3-D tomosynthesis images were obtained and synthetic 2-D images were generated. CAD analysis was submitted and interpreted. COMPARISON: August 23, 2021, July 15, 2020, June 22, 2019 bilateral screening mammogram examinati ons BREAST PARENCHYMAL COMPOSITION: There are scattered areas of fibroglandular density. FINDINGS: There is no evidence of suspicious mass, calcification, or architectural distortion to sugg est malignancy in either breast. There has been no suspicious interval change. IMPRESSION: 1. No mammographic evidence of malignancy. 2. Recommend routine screening mammography in one year. BI-RADS Category 1: Negative Reviewed, dictated and finalized at location A.
== END 2022-11-09 07:55 | disposition home or self-care (01) ==
LOC: ANHIMG 07:57
DX: Z12.31 Encounter for screening mammogram for malignant neoplasm of breast (principal)
CPT/HCPCS: 77063; 77067

== ENCOUNTER 2023-01-10 00:57 | Day surgery (SDC) | payer OTHER, SELFPAY ==
[2022-12-26 14:02] VITALS: BMI 23.4
--- NOTE | 2023-01-09 17:00 | PM.HPGS ---
History of Present Illness History of Present Illness Consent: Risks, benefits, and alternatives have been discussed and questions answered. Patient agrees to proceed with procedure. Chief complaint: hx colon polyps Narrative: Diana Quinones is a 87 year old female Here for colon cancer screening. Four years ago she had 2 subcentimeter polyps removed. is also troubled by chronic diarrhea. Review of Systems Review of Systems: All systems reviewed & are unremarkable except as noted in HPI and below PMFSH Past Medical History Medical History Acquired hypothyroidism Broken shoulder Mixed hyperlipidemia Surgical History Surgical History History of arthroplasty of right shoulder Family History Family History Sibling Family history of alcoholism Patient's brother is Patient's brother is in good health Family history of malignant neoplasm Patient's sister is Mother Family history of malignant neoplasm Patient's mother is Father Family history of malignant neoplasm Patient's father is Other Family history of gallbladder disease Social History Social History Smoking status: Never smoker Second hand tobacco smoke exposure: No Alcohol intake: never Substance use: never Substance use type: does not use Living arrangements: with family Spiritual care concerns: No Meds Home Medications and Allergies Home Medications Medication Instructions Recorded Confirmed Type cholecalciferol (vitamin D3) 50 4,000 unit PO DAILY #180 caps 07/06/21 01/10/23 Rx mcg (2,000 unit) capsule levothyroxine 75 mcg tablet See Rx Instructions .Route 09/27/21 01/10/23 Rx .COMPLEX #90 tabs simvastatin 40 mg tablet See Rx Instructions .Route 09/27/21 01/10/23 Rx .COMPLEX #90 tabs cholestyramine (with sugar) 4 gram See Rx Instructions .Route 11/06/21 01/10/23 Rx powder for susp in a packet .COMPLEX #90 packets oxybutynin chloride 10 mg See Rx Instructions .Route 12/28/21 01/10/23 Rx tablet,extended release 24 hr .COMPLEX #90 tabs gabapentin 100 mg tablet 100 mg PO TID 12/26/22 01/10/23 History alendronate 70 mg tablet (Fosamax) See Rx Instructions .Route .COMPLEX 01/10/23 01/10/23 History Allergies Allergy/AdvReac Type Severity Reaction Status Date / Time hydrocodone Allergy Intermediate Nausea and Verified 01/10/23 09:28 Vomiting meperidine Allergy Intermediate Nausea and Verified 01/10/23 09:28 Vomiting Exam Resp: Auscultation: clear to auscultation bilaterally Cardio: Rate: regular rate Rhythm: regular rhythm GI: GI Palp: Yes Soft to palpation and No Tenderness to palpation present (GI) Assessment and Plan Assessment and plan (1) Adenomatous polyp of cecum: Code(s): D12.0 - Benign neoplasm of cecum Status: Acute Assessment and Plan: Colonoscopy with possible biopsy or polypectomy or cautery or injection of substances.
[2023-01-10 09:31] VITALS: BP 147/72; PULSE 92; RESP 16; TEMP 36.2; O2SAT 100
[2023-01-10] MEDS: LACTATED RINGERS 1,000 ML 150 ML IV CONT (09:40)
--- NOTE | 2023-01-10 09:46 | WPDANESEPPF ---
Anes - Initial Pre Proc Eval Procedure: Operation Date: 01/10/23 11:00 Proposed Procedures p Colonoscopy - Oscar Quiñones MD Date/Time: 01/10/23 09:46 Surgeon: Oscar Quiñones MD Pre Op Diagnosis: hx colon polyps Patient Data Age: 87 Gender: F Height: 1.6 m Weight: 59.5 kg Last Vital Signs Temp 36.2 C L 01/10/23 09:31 Pulse 92 01/10/23 09:31 Resp 16 01/10/23 09:31 BP 147/72 H 01/10/23 09:31 Pulse Ox 100 01/10/23 09:31 O2 Del Method Room Air 01/10/23 09:31 Allergies Allergy/AdvReac Type Severity Reaction Status Date / Time hydrocodone Allergy Intermediate Nausea and Verified 01/10/23 09:28 Vomiting meperidine Allergy Intermediate Nausea and Verified 01/10/23 09:28 Vomiting Home Medications Medication Instructions Recorded Confirmed Type cholecalciferol (vitamin D3) 50 4,000 unit PO DAILY #180 caps 07/06/21 01/10/23 Rx mcg (2,000 unit) capsule levothyroxine 75 mcg tablet See Rx Instructions .Route 09/27/21 01/10/23 Rx .COMPLEX #90 tabs simvastatin 40 mg tablet See Rx Instructions .Route 09/27/21 01/10/23 Rx .COMPLEX #90 tabs cholestyramine (with sugar) 4 gram See Rx Instructions .Route 11/06/21 01/10/23 Rx powder for susp in a packet .COMPLEX #90 packets oxybutynin chloride 10 mg See Rx Instructions .Route 12/28/21 01/10/23 Rx tablet,extended release 24 hr .COMPLEX #90 tabs gabapentin 100 mg tablet 100 mg PO TID 12/26/22 01/10/23 History alendronate 70 mg tablet (Fosamax) See Rx Instructions .Route .COMPLEX 01/10/23 01/10/23 History Patient hx anesthesia problems: none Family hx anesthesia problems: none Results Review: All pre-operative results and documents have been reviewed as part of the pre-operative evaluation. [facility] Past Medical History Medical History Acquired hypothyroidism Broken shoulder Mixed hyperlipidemia Surgical History Surgical History History of arthroplasty of right shoulder Family History Family History Sibling Family history of alcoholism Patient's brother is Patient's brother is in good health Family history of malignant neoplasm Patient's sister is Mother Family history of malignant neoplasm Patient's mother is Father Family history of malignant neoplasm Patient's father is Other Family history of gallbladder disease Social History Social History Smoking status: Never smoker Second hand tobacco smoke exposure: No Alcohol intake: never Substance use: never Substance use type: does not use Living arrangements: with family Spiritual care concerns: No Anes - Eval Final PreProcedure Day of Procedure 01/10/23 09:46 Patient weight: normal Heart: regular rate and rhythm Lungs: clear to auscultation Airway: Mallampati scale class II Neurological: alert and oriented Last oral intake: >/= 8 hours ASA classification: II Emergent: no Anesthetic plan: proceed Anesthesia type and monitoring: general GIVS and standard monitoring Results Review: All pre-operative results and documents have been reviewed as part of the pre-operative evaluation. Informed Consent: The patient's anesthetic plan and its attendant risks and benefits were discussed with the patient/family/POA. Questions were solicited and answers provided to the satisfaction of the patient/family/POA.
[2023-01-10 10:47] VITALS: BP 116/69; PULSE 78; RESP 18; O2SAT 97
[2023-01-10 10:57] VITALS: BP 125/81; PULSE 68; RESP 20; O2SAT 95
[2023-01-10 11:07] VITALS: BP 148/75; PULSE 69; RESP 22; O2SAT 100
== END 2023-01-10 11:10 | disposition home or self-care (01) ==
PROVIDERS: Visit Provider Internal Medicine Gastroenterology
PROC: 0DJD8ZZ Inspection of Lower Intestinal Tract, Via Natural or Artificial Opening Endoscopic (ICD-10-PCS; CPT 45378; principal; 2023-01-10 11:00)
DX: Z12.11 Encounter for screening for malignant neoplasm of colon (principal); K57.30 Diverticulosis of large intestine without perforation or abscess without bleeding; K64.8 Other hemorrhoids; E78.2 Mixed hyperlipidemia; E03.9 Hypothyroidism, unspecified; Z80.9 Family history of malignant neoplasm, unspecified; Z86.010 Personal history of colon polyps
CPT/HCPCS: 45380; 88305; J2704; J7120

== ENCOUNTER 2024-01-04 11:07 | Outpatient (CLI) | payer OTHER, SELFPAY ==
--- NOTE | ~2024-01-04 | MM_ITS ---
EXAMINATION: MM screening [facility] BI w von HISTORY: Screening mammogram TECHNIQUE: Craniocaudal and mediolateral oblique 3-D tomosynthesis images were obtained and synthetic 2-D images were generated. CAD analysis was submitted and interpreted. COMPARISON: 11/09/2022, 08/23/2021, 07/15/2020, 06/22/2019 BREAST PARENCHYMAL COMPOSITION:Not Dense. There are scattered areas of fibroglandular density. FINDINGS: No suspicious mass, calcification, or architectural distortion are identified in either leah ast to suggest malignancy. There has been no suspicious interval change. IMPRESSION: No mammographic evidence of malignancy. Recommend routine screening mammography in one year. BI-RADS Category 1: Negative Reviewed, dictated and finalized at location .
== END 2024-01-04 11:08 | disposition home or self-care (01) ==
LOC: ANHIMG 11:11
DX: Z12.31 Encounter for screening mammogram for malignant neoplasm of breast (principal)
CPT/HCPCS: 77063; 77067

== ENCOUNTER 2025-01-20 08:42 | Outpatient (CLI) | payer OTHER, SELFPAY ==
--- NOTE | ~2025-01-20 | MM_ITS ---
EXAMINATION: MM screening [facility] w von HISTORY: Screening TECHNIQUE: Craniocaudal and mediolateral oblique 3-D tomosynthesis images were obtained and synthetic 2-D images were generated. CAD analysis was submitted and interpreted. COMPARISON: 11/09/2022 BREAST PARENCHYMAL COMPOSITION: There are scattered areas of fibroglandular density. FINDINGS: There is no evidence of suspicious mass, calcification, or architectural distortion to suggest malignancy. There has been no suspicious interval change. IMPRESSION: 1. No mammographic evidence of malignancy. Recommend routine screening mammography in one year. BI-RADS Category 2: Benign finding(s) Reviewed, dictated and finalized at location Q. IMPRESSION: 1. No mammographic evidence of malignancy. Recommend routine screening mammogra phy in one year. BI-RADS Category 2: Benign finding(s)
== END 2025-01-20 08:43 | disposition home or self-care (01) ==
LOC: ANHFOHIMG 08:45
DX: Z12.31 Encounter for screening mammogram for malignant neoplasm of breast (principal)
CPT/HCPCS: 77063; 77067